=== PATIENT | male | born 1950 | race Caucasian/White ===

== ENCOUNTER → 2018-04-29 | Outpatient (CLI) | payer MEDICARE, OTHER ==
[~2018-04-29] MED LIST: LIDOCAINE 1% Multi-Dose 50 ML VIAL. INJ ONE; LIDOCAINE WITH 8.4% SOD BICARB 3 ML DISP.SYRIN. ONE
--- NOTE | 2018-04-29 17:02 | RAD ---
ULTRASOUND-GUIDED FINE-NEEDLE ASPIRATION OF THE LEFT LOBE OF THE THYROID GLAND History: Bilateral thyroid nodules. 4 cm heterogeneous solid nodule of the left lobe seen by ultrasound performed at an outside facility. Procedure: The patient provided both verbal and written consent after the procedure and possible complications including bleeding and infection were explained. A timeout was performed which confirmed the name of the patient and the date of and the type of procedure and the side of the procedure which is bilateral. Allergies to medications were reviewed. Sonography of the thyroid gland was performed and an appropriate skin cassia was made over the lump of the left lobe of the thyroid gland which measures 3.1 cm in today's study. The anterior aspect of the left side of the neck was prepped and draped in the usual sterile fashion with ChloraPrep. A total of 3 cc of 1% lidocaine was utilized for local anesthesia. Using sterile technique and ultrasound guidance, 4 separate 25-gauge fine-needle aspirations of the solid nodule of the left lobe of the thyroid gland were performed. Sonographic spot images were performed. These aspirations were processed by a maintenance leader present in the biopsy suite and taken to the laboratory for further evaluation. Hemostasis was deemed adequate after 3 minutes of manual pressure. Post procedure sonography demonstrated no significant hematoma. The patient tolerated the procedure well without complication. Sterile Band-Aid was applied to left side of the neck. The patient was given instructions to return to the emergency room if there is significant swelling or bleeding in the neck. The patient was instructed to take Tylenol for any discomfort and to apply ice to the left side of the neck for any swelling. Impression: Ultrasound-guided fine-needle aspiration biopsy of the solid nodule of the left lobe of the thyroid gland was performed without complication. Follow-up will be with the patient's physician. ULTRASOUND-GUIDED FINE-NEEDLE ASPIRATION OF THE RIGHT LOBE OF THE THYROID GLAND History: 2.5 cm nodule of the lower pole of the right lobe of the thyroid gland seen by ultrasound performed at an outside facility. Procedure: The patient provided both verbal and written consent after the procedure and possible complications including bleeding and infection were explained. A timeout was performed which confirmed the name of the patient and the date of and the type of procedure and the side of the procedure. Allergies to medications were reviewed. Sonography of the thyroid gland was performed and an appropriate skin cassia was made over the lower pole solid nodule of the right lobe of the thyroid gland. The anterior aspect of the right side of the neck was prepped and draped in the usual sterile fashion with ChloraPrep. A total of 3 cc of 1% lidocaine was utilized for local anesthesia. Using sterile technique and ultrasound guidance, 4 separate 25-gauge fine-needle aspirations of the solid nodule of the lower pole of the right lobe of the thyroid gland were performed. Sonographic spot images were performed. These aspirations were processed by a maintenance leader present in the biopsy suite and sent to laboratory for further evaluation. Hemostasis was deemed adequate after 3 minutes of manual pressure. Post procedure sonography demonstrated no significant hematoma. The patient tolerated the procedure well without complication. Sterile Band-Aid was applied to right side of the neck. The patient was given instructions to return to the emergency room if there is significant swelling or bleeding in the neck. The patient was instructed to take Tylenol for any discomfort and to apply ice to the right side of the neck for any swelling. Impression: Ultrasound-guided fine-needle aspiration biopsy of the solid nodule of the lower pole of the right lobe of the thyroid gland was performed without complication. Follow-up will be with the patient's physician. Electronically signed by: Skip Perrin MD (04/29/2018 4:59 PM) [facility]
== END | disposition home or self-care (01) ==
LOC: US 15:28
PROVIDERS: ATTEND Family Medicine
DX: E04.2 Nontoxic multinodular goiter (principal)
CPT/HCPCS: 76942